=== PATIENT | female | born 1990 | race Hispanic/Latino ===

== ENCOUNTER 2018-09-25 06:08 | Inpatient (IN) | payer OTHER, SELFPAY ==
[2018-09-25] MEDS ORDERED: CLINDAMYCIN INJ 900 MG in NA CHLORIDE 0.9% 50 ML IV ONE (07:38)
[2018-09-25] MEDS ORDERED: CLINDAMYCIN INJ 600 MG in NA CHLORIDE 0.9% 50 ML IV SCH (07:39)
[2018-09-25] MEDS ORDERED: NA CIT/CITRIC AC 30 ML ORAL UDC PO ONE (07:40)
--- NOTE | 2018-09-25 07:54 | PREOPHP ---
Date of Admission: 09/25/2018 History Of Present Illness: A 28-year-old 5, para 2, 2 previous C-sections, for repeat C-sec tion on Sunday, comes in though in early labor. Birdie every 5 minutes very firmly. Cervix is posterior, but 60% effaced. Baby well applied. She has been birdie she says for the past sever al hours. She has not taken any food since midnight. Family History: Noncontributory. Allergies: SHE IS ALLERGIC TO PENICILLIN. THEREFORE, WE USED CLEOCIN FOR PROPHYLAXIS. Medications: She has been on vitamins. Social History: Does not smoke. Physical Examination: HEENT: Clear. Pupils equal, round, and reactive to light and accommodation. Conjunctivae well perf used. No oral, lingual, or buccal lesions. Chest and Lungs: Clear. Breasts: Not examined. Abdomen: Term size. Baby is vertex. Extremities: Clear. : Cervical exam as stated. Early labor. Plan: We will proceed with repeat section. CHRISTY/AMNA Voice ID: [id number]
[2018-09-25] MEDS ORDERED: METOCLOPRAMIDE 10 MG/2mL INJ IV SCH (08:00)
[2018-09-25] MEDS ORDERED: OXYTOCIN/LR 20 UNIT/1,000 ML BAG IV SCH (08:00)
[2018-09-25 08:42] LABS: RPR Titer ND
[2018-09-25 08:45] LABS: Absolute Lymphocytes (CBC) 1.8 K/uL (0.7-4.9); Absolute Monocytes 0.7 K/uL (0.1-1.3); Absolute Neutrophil 7.4 K/uL (1.8-8.0); Basophils % 0.2 % (0-1.3); Eosinophils % 0.3 % (0-4.4); Hematocrit 38.3 % (36.0-45.0); Lymphocytes % 17.8 % (15.3-44.8); MPV 10.4 fL (7.6-11.3); Monocytes % 6.9 % (3.3-12.3); RBC Red Blood Cell Count 4.26 M/uL (3.86-4.86)
[2018-09-25] MEDS ORDERED: EPHEDRINE SULF 50 MG/ML VIAL ONE (08:59)
[2018-09-25] MEDS ORDERED: OXYTOCIN 10 UNIT/ML ML IV ONE ×2 (08:59→09:38)
[2018-09-25] MEDS ORDERED: MORPHINE SULFATE/PF 1 MG/ML (10 ML AMP) ONE (08:59)
[2018-09-25] MEDS ORDERED: FAMOTIDINE 20 MG/2 ML VIAL IV SCH (09:00)
[2018-09-25] MEDS ORDERED: MIDAZOLAM HCL 2 MG/2 ML INJ ONE (09:32)
[2018-09-25] MEDS ORDERED: NALOXONE 0.4 MG/ML VIAL IV PRN (10:18)
[2018-09-25] MEDS ORDERED: DIPHENHYDRAMINE 50 MG/ML VIAL IV PRN (10:19)
[2018-09-25 11:59] VITALS: BMI 30.9
--- NOTE | 2018-09-25 12:10 | OP ---
Surgeon: Timbo Almaraz MD Indications: A 28-year-old 5, para 2, previous C-sections x2 for repeat section on Sunday. Thirty-eight weeks and 2 days, best estimate. Came in early labor. Full preoperative couns eling concerning procedure and possible complications, including infection, blood loss, anesthetic co mplications, injury to bladder, bowel, ureter, postoperative complications, clots in legs, and pneumo guille. The patient knows fully well this not constitute all the possible problems that could occur dur ing or following surgery. Anesthesia: Spinal block anesthesia. Dr. Mena and group. [employer] Surgeon: Dr. Medina. Procedure In Detail: After adequate anesthesia, prepping and draping, time-out was performed. Low t ransverse uterine incision was created just on top of the previous incision. The incision was khang d to the fascia. The fascia was incised and incision carried transversely bilaterally. Anterior and posterior fascia planes were developed with both blunt and sharp dissection. The underlying rectus muscle was and peritoneum entered bluntly. Bladder flap developed. Then low transverse ut erine incision created. An 8-pound 10-ounce male infant delivered. Apgars 9 and 10. Cord blood spe cimen was obtained. Placenta was removed manually. Uterus cleared of clot and blood and exteriorize d. Cervical os was dilated with ring clamp. Uterus closed with a running locked stitch of 1 chromic followed by 2-3 stitches along the suture line for complete hemostasis. Estimated blood loss 700-75 0 cc. Gutters clear of clot and blood. Uterus was replaced in the peritoneal cavity. No further bl eeding seen along suture line. Muscle was closed with 1 Vicryl interrupted sutures. Then the fascia closed with 0 Vicryl running locked stitch from either angle to the midline. Subcutaneous tissue wa s closed with 2-0 plain, absorbable monserrat and then metal monserrat. The patient had been given 900 m g of Cleocin for prophylaxis. Tolerated all procedures well. She was transferred back to her room i n good condition. Final Diagnoses: Term intrauterine . Repeat section in labor, 38 weeks 2 days. S subha block anesthesia. CHRISTY/AMNA Voice ID: [id number] Report ID: [id number]
[2018-09-25 12:30] VITALS: O2SAT 100
[2018-09-25] MEDS ORDERED: Ringers Lactate 3,000 ML IV ONE (16:47)
[2018-09-25] MEDS ORDERED: D5LR 1,000 ML with OXYTOCIN 20 UNIT IV SCH ×2 (17:00)
[2018-09-25] MEDS ORDERED: CLINDAMYCIN PHOSPHATE 900 MG in NA CHLORIDE 0.9% 50 ML IV ONE (17:00)
[2018-09-25] MEDS: KETOROLAC 30 MG/ML INJ IV PRN (17:05)
[2018-09-25 20:33] LABS: RPR (Rapid Plasma Reagin) NON-REACT (NON-REACT)
[2018-09-26] MEDS: KETOROLAC 30 MG/ML INJ IV PRN (00:54)
[2018-09-26] MEDS ORDERED: Oxycodone HCl/Acetaminophen 1 TAB TAB PO PRN (07:40)
[2018-09-26] MEDS: Oxycodone HCl/Acetaminophen 1 TAB TAB PO PRN ×3 (07:48→22:39)
--- NOTE | 2018-09-26 07:59 | PN ---
Postoperatively, she has done quite well. H and H with minimal change. Lochia is normal. Vital sig ns all stable. No post spinal block problems. We will discontinue her IV and Pena. She has alread y ambulated. If all continues well, we will send her home tomorrow morning. Full discussion with e patient about postoperative care. We will go over it again tomorrow. Rh negative, and she has rec eived RhoGAM. CHRISTY/AMNA Voice ID: [id number] Report ID: [id number]
[2018-09-26] MEDS ORDERED: IBUPROFEN 200 MG TAB PO PRN (18:00)
[2018-09-27] MEDS: Oxycodone HCl/Acetaminophen 1 TAB TAB PO PRN ×2 (03:03→07:15)
[2018-09-27 08:11] VITALS: BP 114/69; TEMP 97.5
[2018-09-27 21:16] LABS: HBsAG Nonreactive (Nonreactive)
--- NOTE | 2018-09-28 04:46 | DS ---
Date of Discharge: 09/27/2018 Hospital Course: A 28-year-old multiparous female, third section. The patient underwent ce sarean section, low transverse cervical, spinal block anesthesia. Delivery of an 8-pound, 10-ounce m nacho , Apgars 9 and 10. H and H with minimal change pre and postop. O negative. Received RhoG AM. Immune to Rubella. Postoperatively, has done quite well, is afebrile. Will be dismissed to ret urn to my office next week for staple removal. To report any temperature elevation of 100 degrees or greater, severe pain, heavy bleeding, or any other type of abnormalities. Dismissed with tramadol f or analgesia. No post spinal block problems. She has had her Tdap immunization. Final Diagnoses: Term intrauterine . Repeat section. Spinal block anesthesia. R hoGAM administered. Tdap during the administered. CHRISTY/AMNA Voice ID: [id number] Report ID: [id number]
== END 2018-09-27 10:20 | disposition home or self-care (01) | DRG 787 ==
LOC: L&D 06:08 → 2ND-WC 07:38
PROVIDERS: ADMIT Specialist; ATTEND Specialist
PROC: 3E0334Z Introduction of Serum, Toxoid and Vaccine into Peripheral Vein, Percutaneous Approach (ICD-10-PCS; 2018-09-25)
PROC: 10D00Z1 Extraction of Products of Conception, Low, Open Approach (ICD-10-PCS; principal; 2018-09-25 09:00)
DX: O34.211 Maternal care for low transverse scar from previous cesarean delivery (principal); O36.0930 Maternal care for other rhesus isoimmunization, third trimester, not applicable or unspecified; Z3A.38 38 weeks gestation of pregnancy; Z37.0 Single live birth
CPT/HCPCS: 36415; 85014; 85025; 85461; 86592; 86850; 86870; 86900; 86901; 87340; 88307; J2250; J2590; J2765; J2790; S0077